=== PATIENT | male | born 1990 | race Native Hawaiian/Other Pacific Islander ===

== ENCOUNTER 2018-10-01 20:37 | Emergency (ER) | payer OTHER ==
[~2018-10-01] VITALS: Ht 185.4 cm; Wt 92.1 kg
[2018-10-01 21:20] VITALS: BP 142/85; TEMP 98.1
== END 2018-10-01 21:23 | disposition home or self-care (01) ==
LOC: ED 20:37
DX: H10.9 Unspecified conjunctivitis (principal)
CPT/HCPCS: 99283